=== PATIENT | male | born 1970 | race Caucasian/White ===

== ENCOUNTER → 2021-10-24 | Outpatient (REF) | LOC: M PLAIMG 09:40 | PROVIDERS: ATTEND Internal Medicine | DX: M46.96 Unspecified inflammatory spondylopathy, lumbar region (principal) ==

== ENCOUNTER → 2022-12-18 | Outpatient (REF) | LOC: M PLAIMG 14:15 | PROVIDERS: ATTEND Internal Medicine | DX: Z00.00 Encounter for general adult medical examination without abnormal findings (principal) ==